=== PATIENT | female | born 1945 | race Caucasian/White ===

== ENCOUNTER 2019-08-09 16:18 | Outpatient (REF) | payer MEDICARE, OTHER, SELFPAY ==
[2019-08-11 11:32] LABS: Campylobacter PCR SEE COMMENTS; Salmonella PCR SEE COMMENTS; Shiga Toxin PCR SEE COMMENTS; Shigella/Enteroinvasive Ecoli SEE COMMENTS
== END 2019-08-09 16:38 ==
LOC: NCHCN 16:18
PROVIDERS: PCP Family Medicine; Visit Provider Family Medicine
DX: R19.7 Diarrhea, unspecified (principal)
CPT/HCPCS: 87329; 87505; 83630; 87324

== ENCOUNTER 2019-09-06 01:37 | Outpatient (CLI) | payer MEDICARE, OTHER, SELFPAY ==
--- NOTE | 2019-09-06 14:00 | DI.DEXA_ITS ---
EXAM: XR DEXA BONE DENSITY W/WO MARIBELL INDICATION: POSTMENOPAUSAL, Z78.0. COMPARISON: 2005. FINDINGS: The MARIBELL image shows no evidence of compression fractures. The bone mineral density measurements of t he lumbar spine correspond to a total T-score of 2.4, in the normal range. This is an increase of 5. 4 percent when compared with the previous exam. There are degenerative changes in the spine, particu larly at L1 and L4, which could falsely elevate the bone mineral density measurements. The bone mineral density measurements of the left hip correspond to a total T-score of -0.6 and a fem oral neck T-score of -1.0. This represents a 12.7 percent decrease when compared with 2005. The left forearm bone mineral density measurements correspond to a T-score of the distal third of -1. 6, in the osteopenic range. The former was not analyzed in 2005. IMPRESSION: Normal bone mineral density of the lumbar spine. Normal bone mineral density of the left hip with de crease when compared with 2005. Osteopenia of the left forearm.
== END 2019-09-06 01:57 ==
PROVIDERS: PCP Family Medicine; Visit Provider Family Medicine
DX: M85.88 Other specified disorders of bone density and structure, other site (principal); Z78.0 Asymptomatic menopausal state
CPT/HCPCS: 77080

== ENCOUNTER 2019-09-12 01:58 | Outpatient (CLI) | payer MEDICARE, OTHER, SELFPAY ==
--- NOTE | 2019-09-12 12:40 | DI.MAMMO_ITS ---
EXAM: MAMMO SCREENING CLINICAL HISTORY: SCREENING Z12.39 TECHNIQUE: Mammograms were interpreted according to the usual protocol including computer analysis w [employer] CAD system, tomosynthesis and C-view imaging. COMPARISON: Current examination is compared with previous examinations including November 2013 FINDINGS: The breasts are heterogeneously dense. No dominant mass or clumped microcalcification is identified in either breast. Current examination is compared with previous examinations including November 2013 and there has been no gross interval change in appearance in comparison with the previous studies. IMPRESSION: No specific evidence of malignancy at this time. Routine screening examinations are suggested at year ly intervals due to the family history of breast carcinoma. Category 1, breast density category C. BI-RADS Cat 1 - Negative Breast Density - Category C - Heterogeneously dense Patient will receive a letter notifying them of these results.
== END 2019-09-12 02:18 ==
PROVIDERS: PCP Family Medicine; Visit Provider Family Medicine
DX: Z12.31 Encounter for screening mammogram for malignant neoplasm of breast (principal); Z80.3 Family history of malignant neoplasm of breast
CPT/HCPCS: 77063; 77067

== ENCOUNTER → 2019-10-15 13:46 | Outpatient (BNVA) | payer MEDICARE, OTHER, SELFPAY | PROVIDERS: PCP Family Medicine; Referring Provider Family Medicine; Visit Provider Surgery | DX: R69 Illness, unspecified (principal) ==

== ENCOUNTER 2019-10-15 14:48 | Outpatient (CLI) | payer MEDICARE, OTHER, SELFPAY ==
[2019-10-15 15:17] LABS: Abs Immature Grans 0.01 k/cumm (0.0-0.09); Absolute Basophil Count 0.04 k/cumm (0.0-0.2); Absolute Eosinophil Count 0.09 k/cumm (0.0-0.7); Absolute Lymphocyte Count 2.61 k/cumm (1.2-3.4); Absolute Monocyte Count 0.47 k/cumm (0.11-0.7); Absolute Neutrophil Count 4.61 k/cumm (1.2-6.7); Basophils % 0.5; Eosinophils % 1.1; HCT 40.1 % (36.0-46.0); HGB 13.5 g/dL (12.0-15.5); Immature Grans % 0.1; Lymphocytes % 33.3; Mean Corp. HGB Concentration 33.7 g/dL (32.0-36.0); Mean Corpuscular Hemoglobin 31.2 pg (27.0-33.0); Mean Corpuscular Volume 92.6 fL (80-95); Mean Platelet Volume 9.2 fL (8.0-11.0); Platelet Count 301 x1000/uL (130-400); RBC 4.33 m/cumm (4.00-5.20); RBC Distribution Width 13.2 % (11.7-14.6); White Blood Cell Count 7.83 k/cumm (4.4-10.8)
[2019-10-15 16:26] LABS: ALT 18 U/L (14-59); AST 17 U/L (15-37); Albumin 3.4 g/dL (3.4-5.0); Alkaline Phosphatase 87 U/L (46-116); Anion Gap 7.7 mmol/L (3-11); BUN 9 mg/dL (7-18); Bilirubin, Total 0.3 mg/dL (0.2-1.0); CO2 30.3 mmol/L (21.0-32.0); CREATININE 0.69 mg/dL (0.55-1.02); Calcium 8.9 mg/dL (8.5-10.1); Chloride 104 mmol/L (98-107); Glucose 88 mg/dL (74-106); Sodium 142 mmol/L (136-145); TSH 1.87 uIU/mL (0.36-3.74); Total Protein 6.6 g/dL (6.4-8.2)
[2019-10-17 13:25] LABS: IgA 203 mg/dL (85-499); Tissue Transglutaminase IgA <1.2 U/mL (<4.0)
== END 2019-10-15 15:08 ==
PROVIDERS: PCP Family Medicine; Visit Provider Surgery
DX: R19.7 Diarrhea, unspecified (principal); G44.229 Chronic tension-type headache, not intractable; Z80.3 Family history of malignant neoplasm of breast
CPT/HCPCS: 36415; 80053; 82784; 83516; 99204; 84443; 85025

== ENCOUNTER 2019-10-23 06:58 | Day surgery (SDC) | payer MEDICARE, OTHER, SELFPAY ==
[2019-10-23 07:26] VITALS: BP 107/69; PULSE 67; RESP 18; TEMP 36.4; O2SAT 99
[2019-10-23] MEDS: Lactated Ringers 1,000 ML 80 ML IV (07:45)
--- NOTE | 2019-10-23 09:14 | BOWEL_PTH ---
PATIENT: Rajwinder Mcgraw LOC: [facility] U#:[id number] AGE/SX: 74/F ROOM: RE10/23/[address]: Cornelia Buchanan MD : [id number] BED: DIS: 10/23/2019 SPEC #: [id number] RECD: 10/23/19 12:27 STATUS: REGGIE RECarlton #: [id number] JAJA: 10/23/19 09:[address]: Cornelia Buchanan DEPT: Surgical Specimen RECD BY: Dolores Stewart ENTERED: 10/23/19 12:28 SP TYPE: Bowel OTHR DR: Jana Da Silva Tissues: 1 - BIOPSY BOWEL 2 - BIOPSY BOWEL 3 - BIOPSY BOWEL 4 - BIOPSY BOWEL Procedures: GROSS AND MICRO LEVEL 4 Comments: [id number]
--- NOTE | 2019-10-23 09:39 | W.PM.DSUDISC ---
Discharge Plan Disposition Patient Disposition: HOME Condition: Good Discharge Details Reason For Visit: Colonoscopy Attending Provider: Cornelia Buchanan Primary Care Provider: Jana Da Silva Home Meds and New Rx's Prescriptions: Continued zolpidem [Ambien] 5 mg tablet 5 mg PO QHS PRNRF: 0 atenolol 50 mg tablet 50 mg PO DAILY RF: 0 fluoxetine 40 mg capsule 40 mg PO DAILY RF: 0 Discharge Instructions Additional Instructions: Findings: Three tiny polyps were removed. These appear benign. My office will contact you with biopsy. No obvious cause of diarrhea was found. Follow up: Plan for a colonoscopy in 5 years due to the finding of polyps. Please call if you develop: fevers >101.5 Nausea or Vomiting Abdominal pain that is not transient DAY SURGERY UNIT POST COLONOSCOPY INSTRUCTIONS 1. Because there will be medication in your system for the next 24 hours, you may feel a little sleepy. Your coordination will be affected. Therefore: a. Do not drive or operate dangerous equipment for 24 hours. b. Do not drink alcohol beverages for 24 hours (not even beer). c. Plan to go home and rest for the day. 2. Generally there are no restrictions on your activity after a day or so has gone by, but you may feel a bit fatigued for a few days. 3 After you arrive home you may have a light meal and return to a normal diet as you can tolerate it without feeling sick to your stomach. 4. After surgery, you may feel pain or discomfort. This should be only transient, but if it persists please contact your doctor. 5. If there are any questions regarding the findings of your procedure, please feel free to contact your doctor. 6. If you are unable to contact your doctor with a problem, contact the hospital at [phone]. 7. Continue all your regular medications unless directed otherwise. I understand the above instructions and have no questions. Signature of Patient or Responsible Adult Escort Date/Time Name of Responsible Adult Escort Signature of Nurse Date/Time Activity:: Activity as Tolerated Diet:: As Tolerated Discharge Orders Discharge Orders: Discharge Order (Routine); Ordered 10/23/19 Ordered By: Cornelia Buchanan DS: Diagnosis Discharge Diagnosis (1) Colon polyps: Status: Acute
--- NOTE | 2019-10-25 11:03 | COLE_ITS ---
REPORT OF OPERATIVE PROCEDURE DATE OF PROCEDURE October 23, 2019 PREOPERATIVE DIAGNOSIS Change of bowel habits. POSTOPERATIVE DIAGNOSIS Colon polyps. PROCEDURES Colonoscopy with random biopsies and cold forceps polypectomy. SURGEON Cornelia Buchanan M.D. ANESTHESIA General. INDICATION This is a 74-year-old woman who notes increased frequency of her stools, which are also somewhat loos er. She had not had a prior colonoscopy. She also notes some mild weight loss. Her laboratory studies were all normal, including testing for celiac disease. Stool studies were also normal with the exce ption of positive Lactoferrin. She denies family history of colon cancer or inflammatory bowel diseas e. PROCEDURE DESCRIPTION She was placed in the left Ortez position. Propofol was titrated to sedation. Digital rectal examinati on revealed no abnormalities. The scope was advanced to the cecum without difficulty. Her prep was ex cellent. There was no visible inflammatory change throughout the colon. I did perform random biopsies to evaluate for microscopic colitis. The scope was slowly withdrawn with diminutive polyp identified at the hepatic flexure and removed with the cold forceps. A diminutive polyp was also removed from t he descending colon and from 25 cm, which would be in the sigmoid region. These were all removed and sent to Pathology. Retroflexed view in the rectum showed no other abnormalities. She tolerated the pr ocedure well and was stable to Recovery. She can consider a followup colonoscopy again in five years depending on polyp pathology and her over all health. We will contact her with biopsy results. CC: Jana Da Silva M.D.
== END 2019-10-23 10:20 | disposition home or self-care (01) ==
PROVIDERS: PCP Family Medicine; Visit Provider Surgery
PROC: 0DJD8ZZ Inspection of Lower Intestinal Tract, Via Natural or Artificial Opening Endoscopic (ICD-10-PCS; CPT 45378; principal; 2019-10-23 08:30)
DX: R19.4 Change in bowel habit (principal); R63.4 Abnormal weight loss; K52.832 Lymphocytic colitis; D12.3 Benign neoplasm of transverse colon; D12.4 Benign neoplasm of descending colon; K63.5 Polyp of colon
CPT/HCPCS: 45380; 88305; J2250; J3010

== ENCOUNTER → 2019-11-12 14:39 | Outpatient (BNVA) | payer MEDICARE, OTHER, SELFPAY | PROVIDERS: PCP Family Medicine; Referring Provider Family Medicine; Visit Provider Surgery | DX: K52.832 Lymphocytic colitis (principal) | CPT/HCPCS: 99212 ==

== ENCOUNTER 2020-08-28 02:25 | Outpatient (CLI) | payer MEDICARE, OTHER, SELFPAY ==
--- NOTE | 2020-08-28 13:54 | DI.CTLCSR_ITS ---
EXAM: CT CHEST LUNG CANCER SCREEN CLINICAL HISTORY: SCREENING FOR LUNG CA,CURRENT SMOKER, F17.210 TECHNIQUE: Imaging Protocol: Axial computed tomography images with coronal and sagittal reformatted images were created and reviewed COMPARISON: No exams were available for comparison FINDINGS: Tracheobronchial tree: Patent where visualized. Mediastinum and Samia: No dominant adenopathy or fluid collection. Pulmonary parenchyma: No consolidation or dominant measurable mass. Mild centrilobular emphysema. Se veral small blebs at the right lung apex. There are minimal linear areas of scarring. Lung Nodules: None. Pleura: No effusion or pneumothorax. Heart: The heart is not dilated. Mild coronary artery calcifications are seen. Aorta: Thoracic aorta non-dilated.Tortuous. Mild atherosclerotic changes. Upper abdomen: Unremarkable. Bones: Degenerative disc changes. Hemangioma in the T11 vertebral body.. Soft Tissues: Unremarkable. IMPRESSION: No suspicious pulmonary nodules. Lung RADS Cat 1 - Negative: No nodules and definitely benign nodules Lung-RADS 1.0 CATEGORIES: Category 0 - Prior chest CT exam(s) being located for comparison. Category 1 - Annual screening in 12 months. No nodules or definitely benign nodules. Category 2 - Annual screening in 12 months. Benign appearance. Nodules with low likelihood of becomin g active cancer. Category 3 - 6-month follow-up. Probably benign. Short-term follow-up suggested. Nodules with low lik elihood of becoming active cancer. Category 4A - 3-month follow-up and CT/PET if >8 mm in size. Suspicious finding. Findings which requi re additional testing. Category 4B - Findings which require additional testing and tissue sampling. Suspicious finding. C Added to Any of the Above - History of prior lung cancer screening. S Added to Any of the Above - Significant unexpected other finding. RADIATION DOSE DELIVERED: 75.88mGy.cm Total DLP DATA REPOSITORY: All CT scans at this facility are submitted to the National Radiology Data Registry (NRDR) Dose Index Registry (DIR) with the [employer] (ACR). RADIATION OPTIMIZATION: All CT scans at this facility use at least one of these dose optimization te chniques: automated exposure control; mA and/or kV adjustment per patient size (includes targeted exa ms where dose is matched to clinical indication); or iterative reconstruction.
== END 2020-08-28 02:45 ==
PROVIDERS: PCP Family Medicine; Visit Provider Family Medicine
DX: F17.210 Nicotine dependence, cigarettes, uncomplicated (principal)
CPT/HCPCS: G0297

== ENCOUNTER 2021-04-01 09:33 | Outpatient (REF) | payer MEDICARE, OTHER, SELFPAY ==
[2021-04-01 18:14] LABS: HCT 40.2 % (36.0-46.0); HGB 13.2 g/dL (11.2-15.7); MCH 30.8 pg (27.0-33.0); MCHC 32.8 % (32.0-36.0); MCV 93.7 fL (80-95); MPV 9.9 fL (8.0-11.0); Platelet Count 243 10^3/uL (130-400); RBC 4.29 10^6/uL (3.93-5.22); RDW 12.7 % (11.7-14.6); RDW-SD 43.8 fL; WBC 6.83 10^3/uL (4.4-10.8)
[2021-04-01 18:34] LABS: ALT 27 U/L (14-59); AST 24 U/L (15-37); Albumin 3.6 g/dL (3.4-5.0); Alkaline Phosphatase 87 U/L (46-116); Anion Gap 7.8 mmol/L (3-11); BUN 9 mg/dL (7-18); Bilirubin, Total 0.5 mg/dL (0.2-1.0); CO2 29.2 mmol/L (21.0-32.0); CREATININE 0.7 mg/dL (0.55-1.02); Calcium 8.7 mg/dL (8.5-10.1); Chloride 104 mmol/L (98-107); Glucose 96 mg/dL (74-106); Potassium 4.1 mmol/L (3.5-5.1); Sodium 141 mmol/L (136-145); TSH (W/Ref FT4) 3.13 uIU/mL (0.36-3.74); Total Protein 6.7 g/dL (6.4-8.2)
== END 2021-04-01 09:34 | disposition home or self-care (01) ==
LOC: NCHCN 09:33
PROVIDERS: PCP Family Medicine; Visit Provider Family Medicine
DX: R00.2 Palpitations (principal); F32.9 Major depressive disorder, single episode, unspecified
CPT/HCPCS: 80053; 85027; 84443

== ENCOUNTER 2021-04-10 00:30 | Outpatient (RCR) | payer MEDICARE, OTHER, SELFPAY ==
--- NOTE | 2021-04-10 08:45 | HOLTER_ITS ---
APPROVED REPORT Conclusion This is a 48-hour monitor ordered for indication of palpitations. The patient was in normal sinus rhythm for the majority of the recording with an average heart rate o f 73 bpm. There were no episodes of ventricular tachycardia and rare PVCs. There were 300 events of supraventricular tachycardia with the longest lasting 25 beats. There were 45 episodes of reported atrial fibrillation for a total duration of 1 hour and 39 minutes. This is 3.4% of the recording. Unfortunately, the rhythm strips during the time of AF arre not cap tured in this monitor for detailed review. Would recommend 14-day monitor to better understand the burden of atrial fibrillation and whether or not this is true AF versus SVT.
--- NOTE | 2021-05-14 10:14 | ZIOP_ITS ---
Date of service: 05/14/21 Time of Service: 10:14 14 Day Electroneurodiagnostic Technician Referring Provider:: Cristina Indications:: palp Note: There is a 14-day monitor order for indication of palpitations. ?The patient was in normal sinus rhythm for the majority of the recording with an average heart rate of 74 bpm. ?There were frequent but brief runs of supraventricular tachycardia with the longest lasting 32 beats. None of these were recorded as symptomatic. ?There were frequent (4%) PACs. ?There were no episodes of ventricular tachycardia and rare PVCs. ?There were no episodes of atrial fibrillation, no pauses greater than 3 seconds and no evidence of high degree heart block. ?There were no patient triggered events.
== END 2021-05-06 23:59 | disposition home or self-care (01) ==
LOC: RT 00:30
PROVIDERS: PCP Family Medicine; Visit Provider Family Medicine
DX: R00.2 Palpitations (principal); I47.2 Ventricular tachycardia; I48.91 Unspecified atrial fibrillation; I47.1 Supraventricular tachycardia
CPT/HCPCS: 93227; 93225; 93226

== ENCOUNTER 2021-04-28 10:43 | Outpatient (CLI) | payer MEDICARE, OTHER, SELFPAY | END 2021-04-28 10:44 | disposition home or self-care (01) | PROVIDERS: PCP Family Medicine; Visit Provider Family Medicine | DX: R00.2 Palpitations (principal) | CPT/HCPCS: 93246 ==

== ENCOUNTER 2021-05-14 10:14 | Outpatient (CLI) | payer MEDICARE, OTHER, SELFPAY | END 2021-05-14 10:15 | LOC: CARDO 06-26 16:09 | PROVIDERS: PCP Family Medicine; Referring Provider Family Medicine; Visit Provider Internal Medicine Cardiovascular Disease | DX: R00.2 Palpitations (principal); I47.2 Ventricular tachycardia; I49.1 Atrial premature depolarization | CPT/HCPCS: 93248 ==

== ENCOUNTER 2021-10-13 00:30 | Outpatient (CLI) | payer MEDICARE, OTHER, SELFPAY ==
--- NOTE | 2021-10-13 12:58 | DI.MAMMO_ITS ---
Exam(s) MAMMO SCREENING EXAM: MAMMO SCREENING CLINICAL HISTORY: SCREENING FOR BREAST CANCER Z12.39 TECHNIQUE: Bilateral full field digital CC and MLO mammographic images were obtained with 3D tomosyn thesis and utilizing computer aided detection (CAD). COMPARISON: Available for comparison. FINDINGS: Masses/Architectural Distortion: The nodule in the lower inner quadrant of the left breast appears st able. The nodular opacity in the right axillary tail is unchanged compared to the prior examination. Microcalcifications: No suspicious pleomorphic-type are seen. Skin Thickening/Nipple Retraction: None. IMPRESSION: 1. No significant interval change with no specific features of malignancy noted. 2. Unless there is more urgent need, screening mammography is recommended, as per [employer] guidelines. BI-RADS Category 2 - Benign Findings Breast Density - Category C - Heterogeneously dense Breast density category C or D implies that the patient has dense breast tissue. Dense breast tissue is very common and is not abnormal but dense breast tissue can make it harder to find cancer on a ma mmogram. Also, dense breast tissue may increase their breast cancer risk. This information about the result of the mammogram report was provided to the patient to raise their awareness. Use this report when you speak with the patient about their risks for breast cancer, which includes their family hist ory. At that time, you may recommend for more screening tests (Ultrasound or MRI) as they might be us eful based on their risk. A negative radiographic report should not delay biopsy if a dominant or clinically suspicious mass is present. Up to ten percent of cancers are not identified on mammography. A negative report may reinforce clinical impression. Adenosis and dense breasts may obscure an underlying neoplasm. False positive reports average 6 to 10%. Patient will receive a letter notifying them of these results.
--- NOTE | 2021-10-13 13:05 | DI.CTLCSR_ITS ---
Exam(s) CT CHEST LUNG CANCER SCREEN EXAM: CT CHEST LUNG CANCER SCREEN CLINICAL HISTORY: CIGARETTE SMOKER F17.210 TECHNIQUE: Imaging Protocol: Axial computed tomography images with coronal and sagittal reformatted images were created and reviewed COMPARISON: CT CT CHEST LUNG CANCER SCREEN from 08/28/2020 FINDINGS: Tracheobronchial tree: Patent where visualized. Pulmonary parenchyma: No consolidation or dominant measurable mass. No architectural distortion. Ther e is atelectasis in the right lung base. Lung Nodules: There is a 3 mm nodule in the left upper lobe anteriorly. Mediastinum and Samia: No dominant adenopathy or fluid collection. The esophagus is unremarkable. Thyroid gland: Unremarkable. Lymph nodes: Unremarkable. Pleura: No effusion or pneumothorax. Heart: The heart is not dilated. Coronary artery calcifications are present. No pericardial effusion . Aorta: Thoracic aorta non-dilated.Atherosclerosis. Upper abdomen: Unremarkable. Soft Tissues: Unremarkable. Bones: Within normal limits. IMPRESSION: 3 mm left upper lobe pulmonary nodule. Lung RADS Cat 2 - Benign Appearance / Behavior: Nodules with a very low likelihood of becoming a clin ically active cancer due to size or lack of growth Lung-RADS 1.0 CATEGORIES: Category 0 - Prior chest CT exam(s) being located for comparison. Category 1 - Annual screening in 12 months. No nodules or definitely benign nodules. Category 2 - Annual screening in 12 months. Benign appearance. Nodules with low likelihood of becomin g active cancer. Category 3 - 6-month follow-up. Probably benign. Short-term follow-up suggested. Nodules with low lik elihood of becoming active cancer. Category 4A - 3-month follow-up and CT/PET if >8 mm in size. Suspicious finding. Findings which requi re additional testing. Category 4B - Findings which require additional testing and tissue sampling. Suspicious finding. Modifier S- Potentially clinically significant finding. (Non lung cancer) RADIATION DOSE DELIVERED: 85.24mGy.cm Total DLP 1.84mGy CTDIvol 85.24mGy.cm Total DLP 1.84mGy CTDIvol DATA REPOSITORY: All CT scans at this facility are submitted to the National Radiology Data Registry (NRDR) Dose Index Registry (DIR) with the [employer] (ACR). RADIATION OPTIMIZATION: All CT scans at this facility use at least one of these dose optimization te chniques: automated exposure control; mA and/or kV adjustment per patient size (includes targeted exa ms where dose is matched to clinical indication); or iterative reconstruction.
== END 2021-10-13 00:50 ==
PROVIDERS: PCP Family Medicine; Visit Provider Family Medicine
DX: Z12.31 Encounter for screening mammogram for malignant neoplasm of breast (principal); Z12.2 Encounter for screening for malignant neoplasm of respiratory organs; F17.210 Nicotine dependence, cigarettes, uncomplicated; R91.8 Other nonspecific abnormal finding of lung field; R91.1 Solitary pulmonary nodule; R92.8 Other abnormal and inconclusive findings on diagnostic imaging of breast
CPT/HCPCS: 71271; 77063; 77067

== ENCOUNTER 2021-11-12 13:25 | Outpatient (REF) | payer MEDICARE, OTHER, SELFPAY ==
[2021-11-12 15:27] LABS: ESR 8 mm/hr (0-30)
[2021-11-12 16:06] LABS: C-Reactive Protein 0.09 mg/dL (0.0-0.3); Uric Acid 2.4 mg/dL (2.6-6.0)
[2021-11-13 09:47] LABS: Cyclic Citrullinated Peptide <2.5 U/mL (<5.0)
[2021-11-13 14:13] LABS: ANA Interpretation Positive (Negative); ANA Titer Pattern 1:320 Homogeneous
== END 2021-11-12 13:26 | disposition home or self-care (01) ==
LOC: NCHCN 13:25
PROVIDERS: PCP Family Medicine; Visit Provider Family Medicine
DX: M25.561 Pain in right knee (principal)
CPT/HCPCS: 85652; 86200; 84550; 86038; 86140

== ENCOUNTER 2021-11-20 01:49 | Outpatient (CLI) | payer MEDICARE, OTHER, SELFPAY | END 2021-11-20 02:09 | PROVIDERS: PCP Family Medicine; Visit Provider Family Medicine ==

== ENCOUNTER 2022-01-04 13:06 | Outpatient (CLI) | payer MEDICARE, OTHER, SELFPAY ==
--- NOTE | 2022-01-04 13:00 | DI.RAD_ITS ---
Exam(s) XR KNEE RT 3V AP,LAT,SIMÓN EXAM: XR KNEE RT 3V AP,LAT,SIMÓN CLINICAL HISTORY: R knee pain. TECHNIQUE: 2D digital imaging was performed. COMPARISON: No exams were available for comparison FINDINGS: BONES: No acute fracture is present. No bony destructive lesion is seen. JOINTS: The knee is normally aligned. No joint effusion is seen. Moderate narrowing medial femoral t ibial joint space. Mild periarticular spurring throughout. Enthesophyte superior pole patella. SOFT TISSUE: Mild chondrocalcinosis. IMPRESSION: Moderate degenerative changes of the medial femoral tibial joint. Chondrocalcinosis. DATA REPOSITORY: RADIATION DOSE DELIVERED:
== END 2022-01-04 13:07 | disposition home or self-care (01) ==
LOC: DIORS 13:06
PROVIDERS: PCP Family Medicine; Referring Provider Family Medicine; Visit Provider Student in an Organized Health Care Education/Training Program
DX: M25.561 Pain in right knee (principal); M17.11 Unilateral primary osteoarthritis, right knee; M11.261 Other chondrocalcinosis, right knee
CPT/HCPCS: 73562; 99215

== ENCOUNTER 2022-12-06 13:54 | Outpatient (CLI) | payer MEDICARE, SELFPAY ==
--- NOTE | 2022-12-06 13:35 | DI.RAD_ITS ---
Exam(s) XR KNEE RT 3V AP,LAT,SIMÓN EXAM: XR KNEE RT 3V AP,LAT,SIMÓN CLINICAL HISTORY: f/u R knee pain. TECHNIQUE: 2D digital imaging was performed of the right knee. Three views obtained. AP, lateral an d PA tunnel views were obtained. COMPARISON: CR XR KNEE RT 3V AP,LAT,SIMÓN from 01/04/2022 FINDINGS: BONES: No acute fracture is present. No bony destructive lesion is seen. There is an enthesophyte at the superior patella. JOINTS: There is mild narrowing of the medial femoral tibial joint and marked narrowing of the patell ofemoral joint. Tricompartment osteophytes are seen. There is chondrocalcinosis in the femoral tibi al joint. No joint effusion is seen. SOFT TISSUE: Normal. IMPRESSION: Osteoarthritis of the right knee. DATA REPOSITORY: RADIATION DOSE DELIVERED:
== END 2022-12-06 13:55 | disposition home or self-care (01) ==
LOC: DIORS 13:54
PROVIDERS: PCP Family Medicine; Referring Provider Family Medicine; Visit Provider Student in an Organized Health Care Education/Training Program
DX: M17.11 Unilateral primary osteoarthritis, right knee (principal)
CPT/HCPCS: 73562; 99213

== ENCOUNTER → 2023-03-28 13:30 | Outpatient (BNVA) | payer MEDICARE, SELFPAY | PROVIDERS: PCP Family Medicine; Referring Provider Family Medicine; Visit Provider Student in an Organized Health Care Education/Training Program | DX: M17.11 Unilateral primary osteoarthritis, right knee (principal) | CPT/HCPCS: 99213 ==

== ENCOUNTER 2023-08-25 01:36 | Outpatient (CLI) | payer MEDICARE, SELFPAY ==
--- NOTE | 2023-08-25 12:41 | DI.MAMMO_ITS ---
Exam(s) MAMMO SCREENING EXAM: MAMMO SCREENING CLINICAL HISTORY: SCREENING, Z12.39 TECHNIQUE: Bilateral full field digital CC and MLO mammographic images were obtained with 3D tomosyn thesis and utilizing computer aided detection (CAD). COMPARISON: Available for comparison. FINDINGS: Masses/Architectural Distortion: None seen. Microcalcifications: No suspicious pleomorphic-type are seen. Skin Thickening/Nipple Retraction: None. There is a mole on the left breast. IMPRESSION: 1. No significant interval change with no specific features of malignancy noted. 2. Unless there is more urgent need, screening mammography is recommended, as per [employer] guidelines. BI-RADS Category 1 - Negative Breast Density - Category B - Scattered areas of fibroglandular density Breast density category C or D implies that the patient has dense breast tissue. Dense breast tissue is very common and is not abnormal but dense breast tissue can make it harder to find cancer on a ma mmogram. Also, dense breast tissue may increase their breast cancer risk. This information about the result of the mammogram report was provided to the patient to raise their awareness. Use this report when you speak with the patient about their risks for breast cancer, which includes their family hist ory. At that time, you may recommend for more screening tests (Ultrasound or MRI) as they might be us eful based on their risk. A negative radiographic report should not delay biopsy if a dominant or clinically suspicious mass is present. Up to ten percent of cancers are not identified on mammography. A negative report may reinforce clinical impression. Adenosis and dense breasts may obscure an underlying neoplasm. False positive reports average 6 to 10%. Patient will receive a letter notifying them of these results.
== END 2023-08-25 01:56 ==
LOC: DI 01:36
PROVIDERS: PCP Family Medicine; Visit Provider Family Medicine
DX: Z12.31 Encounter for screening mammogram for malignant neoplasm of breast (principal)
CPT/HCPCS: 77063; 77067

== ENCOUNTER → 2024-04-04 02:25 | Outpatient (CLI) | payer MEDICARE, SELFPAY ==
--- NOTE | 2024-04-04 | DI.CTLCSR_ITS ---
Exam(s) CT CHEST LUNG CANCER SCREEN EXAM: CT CHEST LUNG CANCER SCREEN CLINICAL HISTORY: CURRENT SMOKER, F17.210, SCREENING FOR LUNG CANCER TECHNIQUE: Imaging Protocol: Axial computed tomography images with coronal and sagittal reformatted images were created and reviewed. Low dose screening protocol. COMPARISON: CT CT CHEST LUNG CANCER SCREEN from 10/13/2021 FINDINGS: Tracheobronchial tree: No bronchiectasis or mucus plugging. Mediastinum and Samia: No dominant adenopathy or fluid collection. Pulmonary parenchyma: No consolidation or dominant measurable mass. Mild emphysematous changes. Scar ring at the inferior lingula. Scarring at the right lung apex. Lung Nodules: Scattered micro nodules. Previously noted 3 millimeter nodule in the left upper lobe i s not visualized on the current exam. Pleura: No effusion. No pneumothorax. Heart: The heart is not dilated. Mild coronary artery calcifications are seen. Aorta: Thoracic aorta non-dilated. Ectatic distally. Upper abdomen: Unremarkable. Bones: Advanced degenerative changes in the spine. Unremarkable for age. Soft Tissues: Unremarkable. IMPRESSION: No suspicious pulmonary nodules. Lung RADS Cat 1 - Negative: No nodules and definitely benign nodules Lung-RADS 1.0 CATEGORIES: Category 0 - Prior chest CT exam(s) being located for comparison. Category 1 - Annual screening in 12 months. No nodules or definitely benign nodules. Category 2 - Annual screening in 12 months. Benign appearance. Nodules with low likelihood of becomin g active cancer. Category 3 - 6-month follow-up. Probably benign. Short-term follow-up suggested. Nodules with low lik elihood of becoming active cancer. Category 4A - 3-month follow-up and CT/PET if >8 mm in size. Suspicious finding. Findings which requi re additional testing. Category 4B - Findings which require additional testing and tissue sampling. Category 4X - Category 3 or 4 nodules with additional features or imaging findings that increases the suspicion of malignancy. Modifier S- Potentially clinically significant findings (non lung cancer) RADIATION DOSE DELIVERED: 82.11mGy.cm Total DLP DATA REPOSITORY: All CT scans at this facility are submitted to the National Radiology Data Registry (NRDR) Dose Index Registry (DIR) with the [employer] (ACR). RADIATION OPTIMIZATION: All CT scans at this facility use at least one of these dose optimization te chniques: automated exposure control; mA and/or kV adjustment per patient size (includes targeted exa ms where dose is matched to clinical indication); or iterative reconstruction.
== END ==
PROVIDERS: PCP Family Medicine; Visit Provider Family Medicine
DX: F17.210 Nicotine dependence, cigarettes, uncomplicated (principal); Z12.2 Encounter for screening for malignant neoplasm of respiratory organs
CPT/HCPCS: 71271

== ENCOUNTER 2024-07-19 01:58 | Outpatient (CLI) | payer MEDICARE, SELFPAY ==
--- NOTE | 2024-07-19 | DI.DEXA_ITS ---
Exam(s) XR DEXA BONE DENSITY W/WO MARIBELL EXAM: XR DEXA BONE DENSITY W/WO MARIBELL CLINICAL HISTORY: MENOPAUSAL STATE Z78.0 TECHNIQUE: COMPARISON: CR XR DEXA BONE DENSITY W/WO MARIBELL from 09/06/2019 FINDINGS: Lateral Spine Image: Unremarkable. No compression deformities identified. Left hip: Total T-Score: -0.8. This compares to -0.6 on the prior examination. Total Z-Score: 1.2 T- and Z-scores: There is no evidence of osteoporosis. Lumbar Spine: Total T-Score: 2.6. This compares to 2.4 on the prior examination. Total Z-Score: 5.2 T- and Z-scores: There is no evidence of osteoporosis. Left forearm: Total T-score:-2.4. This compares to -1.7 on the prior examination. Total Z-score: 0.4. T and Z-score is: Findings are consistent with osteopenia. There is osteoporosis in the mid forearm with a T-score of -2.9. 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
== END 2024-07-19 02:18 ==
LOC: DI 01:59
PROVIDERS: PCP Family Medicine; Visit Provider Family Medicine
DX: Z78.0 Asymptomatic menopausal state (principal); Z13.820 Encounter for screening for osteoporosis; M81.0 Age-related osteoporosis without current pathological fracture
CPT/HCPCS: 77080

== ENCOUNTER → 2024-09-06 12:47 | Outpatient (BNVA) | payer MEDICARE, SELFPAY | PROVIDERS: PCP Family Medicine; Referring Provider Family Medicine; Visit Provider Physical Therapy Assistant | DX: Z12.11 Encounter for screening for malignant neoplasm of colon (principal); Z86.0100 Personal history of colon polyps, unspecified ==

== ENCOUNTER 2024-09-21 08:05 | Day surgery (SDC) | payer MEDICARE, SELFPAY ==
--- NOTE | 2024-09-20 13:34 | W.PM.DSUDISC ---
Date of service: 09/21/24 Time of Service: 10:09 Discharge Plan Disposition Patient Disposition: Home Condition: Good Discharge Details Reason For Visit: screening colonoscopy Attending Provider: Alfred Huggins Primary Care Provider: Jana Da Silva Home Meds and New Rx's Prescriptions: Continued zolpidem [Ambien] 5 mg tablet 5 mg PO QHS PRN atenolol 50 mg tablet 50 mg PO DAILY fluoxetine 40 mg capsule 40 mg PO DAILY albuterol sulfate 90 mcg/actuation HFA aerosol inhaler 2 puff inhalation Q6H PRN Spiriva Respimat 2.5 mcg/actuation mist 2 puff inhalation DAILY Discontinued bisacodyl [Dulcolax (bisacodyl)] 5 mg tablet,delayed release (DR/EC) 5 mg PO ONCE Qty: 4 0RF Rx Instructions: Take per colonoscopy instructions provided by ordering providers office polyethylene glycol 3350 17 gram/dose powder 17 g PO ONCE Qty: 238 0RF Rx Instructions: Take per colonoscopy instructions provided by ordering providers office Discharge Instructions Instructions: Colon polyps Additional Instructions: Mrs. Mcgraw, it was a pleasure meeting you today, I hope you are comfortable during the procedure and make a quick recovery once you get home. Everything went very smoothly. I did find and remove polyps today. To be safe, we will send this off for testing, as polyps carry different risks for colon cancer. I do not suspect he will need any more colonoscopies after this 1 today. If you need anything, or have any questions at all, please do not hesitate to ask, otherwise, the office will be in touch once the polypectomy results are available. 1. If tolerated, consume a soft, low fiber diet for 1-2 days. 2[address] Do not drive, drink alcohol, operate machinery, make critical decisions, or do activities that require coordination or balance for 24 hours. 3. Because air was put into your colon during the procedure, expelling air from your rectum (passing gas or farting) is normal. 4. You may not have a bowel movement for 1-3 days because of the colonoscopy prep. This is normal. 5. Go directly to the emergency room if you notice any of the following: Develop chills (warm to touch), or if you have a thermometer and your temperature is above 101 Difficulty breathing or difficultly swallowing Persistent vomiting Severe abdominal pain, other than gas cramps Severe chest pain Black, tarry stools Any bleeding ? exceeding one tablespoon 6. Call your physician if the site where your intravenous was started becomes red, swollen, painful, and warm to touch. 7. Your physician has reviewed your pre-procedure medications. Please continue to take those medications as previously ordered. You will be given specific information/education regarding any changes to your medications before leaving. Stand Alone Forms: Anesthesia Discharge InstRamsey Regan (DSU) Activity:: Activity as Tolerated Diet:: As Tolerated Discharge Orders Discharge Orders: Discharge Order (Routine); Ordered 09/20/24 Ordered By: Alfred Huggins DS: Diagnosis Discharge Diagnosis (1) Encounter for screening colonoscopy: Status: Acute Asessment and Plan: Follow-up on polypectomy results
--- NOTE | 2024-09-20 13:35 | COLE_ITS ---
Date of service: 09/21/24 Time of Service: 10:11 Colonoscopy Report Date of procedure: 09/21/24 Pre-op diagnosis general: screening colonsocopy Post-op diagnosis procedure note: other (Colon polyp) Procedure: colonoscopy with polypectomy Surgeon: Alrfed Huggins Anesthesia Type: General:No Airway Estimated blood loss (mL): 5 Pathology: other (0.25 cm flat polyp at 40 cm from the anus) Complications: None Disposition: same day Indications: Fernando is a 79 year old woman with a history of adenomatous polyps who needs her next screening colonscopy Prep: Miralax/Dulcolax Procedure Start Time: 09:48 Procedure End Time: 10:05 Retraction Time: 9 Findings: 0.25 cm flat polyp at 40 cm from the anus Procedure Description: After the induction of anesthesia, and with the patient in left lateral decubitus position, I began by performing an external anorectal exam.? Perineum and skin were normal, as was the anal verge.? There was no evidence of external hemorrhoids.? Next, I performed a digital rectal exam.? I did not appreciate any abnormal findings.? Next, I advanced a colonoscope into the rectal vault.? I performed retroflexion.? This appeared normal.? Using insufflation, I then advanced the colonoscope beyond the rectal folds and into the sigmoid colon before advancing towards the cecum.? The quality of the prep was excellent.? The scope was noted to be in the cecum by identification of the ileocecal valve and appendiceal orifice.? I then began withdrawing the colonoscope using repeated irrigation as necessary for full evaluation of the colonic mucosa. ?Around 40 cm from the anal verge I identified a polyp. ?It appeared flat in character. ?I was able to remove this with a cold forcep polypectomy. ?I examined the site, and there was minimal bleeding. ?Once this was completed, I continued to withdraw the scope and examine the remainder of the colonic mucosa. Once the scope was withdrawn to the level of the rectum, great care was taken to examine portions of the rectal folds.? Finally, the scope was withdrawn and the patient was brought to the same-day surgery recovery unit as the anesthetic wore off. ?The findings and instructions were shared with the patient prior to discharge. [place] Bowel Prep [place] Bowel Prep Right Colon: 3 Left Colon: 3 Transverse Colon: 3 Total Score: 9
[2024-09-21 08:20] VITALS: BP 117/72; PULSE 59; RESP 18; TEMP 36.2; O2SAT 99
[2024-09-21] MEDS: Normal Saline Flush 10 ML SYR IV (08:51)
--- NOTE | 2024-09-21 09:01 | W.ANESPRE ---
General Info Date of Service Date Performed: 09/21/24 Height: 5 ft 5 in Weight: 66.2 kg Body Mass Index (BMI): 24.3 Surgical Procedure: Operation Date: 09/21/24 09:50 Proposed Procedure Side Surgeon p Colonoscopy Alfred Huggins MD Meds Allergies and Home Medications Allergies Allergy/AdvReac Type Severity Reaction Status Date / Time No Known Allergies Allergy Verified 09/21/24 08:38 Home Medication ?Medication ?Instructions ?Recorded atenolol 50 mg tablet 50 mg PO DAILY 10/15/19 fluoxetine 40 mg capsule 40 mg PO DAILY 10/15/19 zolpidem 5 mg tablet (Ambien) 5 mg PO QHS PRN 10/15/19 albuterol sulfate 90 mcg/actuation 2 puff inhalation Q6H PRN 06/07/24 aerosol inhaler tiotropium bromide 2.5 2 puff inhalation DAILY 06/07/24 mcg/actuation mist for inhalation (Spiriva Respimat) Current Visit Medications: Current Medications Generic Name Dose Route Start Last Admin Trade Name Ruyq PRN Reason Stop Dose Admin IV Miscellaneous Supplies 1 each 09/21/24 06:00 Iv Access IV 09/21/24 23:59 DIRECTED LEBRON Ondansetron HCl 4 mg 09/20/24 13:36 Ondansetron 4 Mg/2 Ml Vial IVP 10/20/24 13:35 Q4H PRN PRN Nausea / Vomiting Sodium Chloride 0 ml 09/21/24 06:00 09/21/24 08:51 Normal Saline Flush 10 Ml Syr IV 09/21/24 23:59 10 ml PRN PRN Administration Sodium Chloride 0 ml 09/21/24 06:00 Normal Saline 10 Ml Vial IJ 09/21/24 23:59 DIRECTED PRN Sterile Water 0 ml 09/21/24 06:00 Water,Injection,Sterile 10 Ml Vial IJ 09/21/24 23:59 DIRECTED PRN PFSH Active Problems Active Problems: Problem Status Onset Code Encounter for screening colonoscopy Acute Z12.11 Palpitations Acute R00.2 Tobacco use Acute Z72.0 Colon polyps Acute K63.5 Chronic tension headaches Acute G44.229 Insomnia Acute G47.00 DNR (do not resuscitate) Acute Z66 Diarrhea Acute R19.7 PSVT (paroxysmal supraventricular tachycardia) Acute I47.1 Osteoarthritis Chronic M19.90 Medical History Medical History Depression Lymphocytic colitis Primary osteoarthritis of right knee Tobacco use disorder Insomnia Tension headache Surgical History Surgical History History of colonoscopy S/P colonoscopy H/O excision of mass exc. lump on shoulder Tobacco Smoking/Tobacco Use Status: Current every day Tobacco Type: cigarettes Smoking cigarettes per day: 10 Alcohol Alcohol Intake: current Alcohol intake frequency: a few times a week Alcohol type: hard liquor Substance Use Substance use: Never Substance use type: does not use Vital Signs and Lab Results Vital Signs Most Recent Vital Signs in EMR: Most Recent Vital Signs Temp Pulse Resp BP Pulse Ox 36.2 C L 59 L 18 117/72 99 09/21/24 08:20 09/21/24 08:20 09/21/24 08:20 09/21/24 08:20 09/21/24 08:20 Lab Results Blood Type / Crossmatch: No Data to Display Complete Blood Count: No Data to Display Complete Metabolic Panel: No Data to Display Liver Function Panel: No Data to Display Coagulation Panel: No Data to Display Cardiac Panel: No Data to Display Arterial Blood Gas: No Data to Display Venous Blood Gas: No Data to Display Pancreas Panel: No Data to Display Thyroid Panel: No Data to Display Infectious Disease: No Data to Display Blood Cultures: No Data to Display Toxicology Panel: No Data to Display Imaging and Studies Imaging and Studies Study information below may be from another EMR and interpreted by another provider. Please see original notes in EMR for more complete details. Pulmonary Function Summary: IMPRESSION: Moderately-severe obstructive airway disease with significant bronchodilator response. However, this might represent an effort-related phenomenon as the pre pre-bronchodilator spirometry was a somewhat poor effort. Clinical correlation is therefore recommended. 03/19/14 Anesthesia Assessment and Plan Anesthesia History Personal History: No History of Anesthesia Complications Family History: No Family History of Anesthesia Complications Exercise Tolerance Exercise Tolerance: Metabolic Equivalents>4 Cardiac & Pulmonary Exam Cardiac Exam: Normal S1/S2 Heart Sounds Pulmonary Exam: Clear Bilateral Breath Sounds Implantable Cardiac Device Does patient have a Pacemaker or an ICD?: No Airway Exam Known Difficult Airway: No Mallampati Class: 3 Mouth Opening: Normal (> 3cm) Thyromental Distance: Greater than 3 cm Neck Range of Motion: Full ROM Neck Circumference: Normal Teeth Condition: Removable Dentures/Plates Lower and Edentulous ASA Classification ASA Score: ASA 2 Emergency Case?: No NPO Status NPO Status: NPO Clears >2 hours, Solids >8 hours Anesthesia Plan Resuscitation Status: Full Code Anesthesia Technique: General Anesthesia Airway Planned: Natural Airway Monitors Used: Standard Monitors Preoperative Comments:: 79 yo female for colo. Sig PMHx: RAD (albuterol, Spiriva - has not used these in a while), PSVT/palpitations (atenolol - well controlled), depression, smoker, occ EtOh. Denies Gerd. Appropriately NPO. DNR suspended for procedure.
[2024-09-21 09:10] VITALS: BMI 24.3
--- NOTE | 2024-09-21 10:01 | BOWEL_PTH ---
PATIENT: Rajwinder Mcgraw LOC: [facility] U#:[id number] AGE/SX: 79/F ROOM: RE09/21/[address]: Alfred Huggins MD : 1945 BED: DIS: 09/21/2024 SPEC #: [id number] RECD: 09/21/24 13:04 STATUS: REGGIE [place]arlton #: [id number] JAJA: 09/21/24 10:[address]: Alfred Huggins DEPT: Surgical Specimen RECD BY: Dolores Stewart ENTERED: 09/21/24 13:05 SP TYPE: Bowel OTHR DR: Jana Da Silva Tissues: 1 - BIOPSY BOWEL Procedures: GROSS AND MICRO LEVEL 4 Comments: [id number]
[2024-09-21 10:09] VITALS: BP 97/60; PULSE 59; RESP 18; TEMP 36.1; O2SAT 100
--- NOTE | 2024-09-21 10:25 | W.ANESPOSTOP ---
Postoperative Evaluation Date, Time and Location Date Performed: 09/21/24 Time Performed: 10:12 Patient Location: Day Surgery Unit Vital Signs Most Recent Imported Vital Signs: Most Recent Vital Signs Temp Pulse Resp BP Pulse Ox 36.1 C L 59 L 18 97/60 L 100 09/21/24 10:09 09/21/24 10:09 09/21/24 10:09 09/21/24 10:09 09/21/24 10:09 Pain Score Most Recent Pain Score: Most Recent Pain Score Pain Level 0 09/21/24 10:09 Assessment Mental Status: Awake (Alert & Oriented to Patient Baseline) Airway and Respiratory Function: Patent airway with normal (patient baseline) respiratory exam Cardiovascular Function: Hemodynamically Stable Hydration Status: Adequately Hydrated Nausea & Vomiting: No Nausea or Vomiting Pain: Pt. Denies Any Pain Peripheral Nerve Block: Patient did not receive a nerve block
[2024-09-21 10:36] VITALS: BP 124/61; PULSE 59; RESP 16; TEMP 36.4; O2SAT 100
== END 2024-09-21 11:11 | disposition home or self-care (01) ==
LOC: SUR 08:06
PROVIDERS: PCP Family Medicine; Visit Provider Surgery
PROC: 0DJD8ZZ Inspection of Lower Intestinal Tract, Via Natural or Artificial Opening Endoscopic (ICD-10-PCS; CPT 45378; principal; 2024-09-21 09:45)
DX: Z12.11 Encounter for screening for malignant neoplasm of colon (principal); I47.10 Supraventricular tachycardia, unspecified; K63.5 Polyp of colon
CPT/HCPCS: 45380; 88305; J2371; J2704

== ENCOUNTER 2025-08-26 12:48 | Outpatient (CLI) | payer MEDICARE, SELFPAY | END 2025-08-26 12:49 | disposition home or self-care (01) | PROVIDERS: PCP Family Medicine; Visit Provider Family Medicine | DX: R00.2 Palpitations (principal) | CPT/HCPCS: 93246 ==

== ENCOUNTER 2025-09-19 12:28 | Outpatient (CLI) | payer MEDICARE, SELFPAY ==
--- NOTE | 2025-09-19 14:52 | W.CARDEVENT ---
Date of service: 09/19/25 Time of Service: 14:52 Cardiac Event Recorder Referring Provider:: Jana Da Silva Indications:: Palpitations Cardiac Event Note: This is a cardiac event monitor. Patient was monitored for 13 days and 1 hour Rhythm throughout was sinus with an average heart rate of 67. Minimum was 41, maximum 108 There were very rare isolated ventricular ectopic beats. There were several ventricular triplets There were very rare isolated atrial premature beats. Self-limited atrial runs occurred. All of these were less than 10 beats in duration, all asymptomatic There was no atrial fibrillation, no high-grade AV block, no pauses greater than 3 seconds No symptoms were reported
== END 2025-09-19 12:29 | disposition home or self-care (01) ==
LOC: CARDOPNVT 12:28
PROVIDERS: PCP Family Medicine; Visit Provider Internal Medicine Cardiovascular Disease
DX: R00.2 Palpitations (principal); I49.3 Ventricular premature depolarization; I48.0 Paroxysmal atrial fibrillation
CPT/HCPCS: 93248